=== PATIENT | female | born 1945 ===

== ENCOUNTER 2016-06-26 18:40 | Inpatient (IN) | payer MEDICARE, OTHER ==
[~2016-06-26] VITALS: Ht 152.4 cm; Wt 63.0 kg
[2016-06-26] MEDS ORDERED: VALP250S3 PO (18:47)
[2016-06-26] MEDS ORDERED: RISP3TAB14 PO (18:47)
[2016-06-26] MEDS ORDERED: QUET50TA PO (18:47)
[2016-06-26] MEDS ORDERED: ACET-2154 PO (18:47)
[2016-06-26 19:41] LABS: BASOPHILS # (AUTO) 0.1 K/uL (0.0-0.2); BASOPHILS % (AUTO) 0.7 % (0.0-2.0); EOSINOPHILS # (AUTO) 0.1 K/uL (0.0-0.7); EOSINOPHILS % (AUTO) 1.7 % (0.0-7.0); HEMATOCRIT 35.5 % (37.0-47.0); HEMOGLOBIN 11.8 g/dL (12.0-16.0); LYMPHOCYTES # (AUTO) 1.9 K/uL (0.8-4.8); LYMPHOCYTES % (AUTO) 25.4 % (20.5-51.5); MEAN CORPUSCULAR HEMOGLOBIN 27.3 uug (27.0-31.0); MEAN CORPUSCULAR HGB CONC 33 g/dL (32.0-37.0); MEAN CORPUSCULAR VOLUME 82.3 fL (81.0-99.0); MONOCYTES # (AUTO) 0.6 K/uL (0.1-1.30); MONOCYTES % (AUTO) 7.9 % (0.0-11.0); NEUTROPHILS # (AUTO) 4.8 K/uL (1.8-8.9); NEUTROPHILS % (AUTO) 64.3 % (38.5-71.5); PLATELET COUNT (AUTO) 332 K/uL (150-450); RED BLOOD CELL COUNT(AUTO) 4.32 MIL/uL (4.20-5.40); RED CELL DISTRIBUTION WIDTH 14.4 % (11.5-14.5); WHITE BLOOD COUNT (AUTO) 7.5 K/uL (4.0-11.2)
[2016-06-26 19:48] LABS: CALCIUM 9.6 mg/dL (8.5-10.1); CARBON DIOXIDE 32 mmol/L (21-32); CHLORIDE 105 mmol/L (98-107); CREATININE 0.9 mg/dL (0.6-1.3); GLUCOSE 150 mg/dL (74-106); POTASSIUM 3.7 mmol/L (3.5-5.1); SODIUM SERUM 142 mmol/L (136-145); UREA NITROGEN, BLOOD 19 mg/dL (7-18)
[2016-06-26 19:49] LABS: ETHANOL < 3 MG/DL (0-0)
[2016-06-26 19:55] LABS: ALANINE AMINOTRANSFERASE 32 U/L (14-59); ALBUMIN 3.4 g/dL (3.4-5.0); ALKALINE PHOSPHATASE 99 U/L (50-136); ASPARTATE AMINOTRANSFERASE 23 U/L (15-37); BILIRUBIN,DIRECT 0.2 mg/dL (0.0-0.2); BILIRUBIN,TOTAL 0.6 mg/dL (0.2-1.0); TOTAL PROTEIN, SERUM 8.3 g/dL (6.4-8.2)
[2016-06-26 19:58] LABS: THYROID STIMULATING HORMONE 0.312 mIU/mL (0.358-3.740)
[2016-06-26 19:59] LABS: ACETAMINOPHEN < 2.0 ug/mL (10-30); VALPROIC ACID 17 ug/mL (50-100)
[2016-06-26] MEDS ORDERED: OLANZAPINE 10 MG VIAL IM ONE ×2 (22:00→22:11)
[2016-06-26 22:30] VITALS: BP 137/88
[2016-06-26] MEDS ORDERED: MAG HYDROX/AL HYDROX/SIMETH 30 ML LIQUID UDC PO PRN (23:00)
[2016-06-26] MEDS ORDERED: MAGNESIUM HYDROXIDE 30 ML LIQUID UDC PO PRN (23:00)
[2016-06-26] MEDS ORDERED: ACETAMINOPHEN 325 MG TABLET PO PRN (23:00)
[2016-06-27] MEDS ORDERED: FERR-58 PO (00:40)
[2016-06-27] MEDS ORDERED: GLIP2.5T3 PO (00:40)
[2016-06-27] MEDS ORDERED: ATEN50TA PO (00:41)
[2016-06-27] MEDS ORDERED: ATOR20TA PO (00:42)
[2016-06-27] MEDS ORDERED: OMEP20CA10 PO (00:42)
[2016-06-27] MEDS ORDERED: BUSP5TAB3 PO (00:46)
[2016-06-27] MEDS ORDERED: ASPI81TA44 PO (00:46)
[2016-06-27] MEDS ORDERED: METF10002 PO (00:46)
[2016-06-27] MEDS ORDERED: DIVA500T4 PO (00:46)
[2016-06-27] MEDS ORDERED: AMLO1TAB14 PO (00:46)
[2016-06-27] MEDS ORDERED: RISP2TAB23 PO (00:46)
[2016-06-27] MEDS ORDERED: FLUO20CA36 PO (00:46)
[2016-06-27 07:30] VITALS: BP_SYST 115; BP_SYST 147; BP_DIAS 70; BP_DIAS 75
[2016-06-27] MEDS ORDERED: Medication Not On Formulary EA (Omeprazole 20 MG) PO SCH (09:45)
[2016-06-27] MEDS ORDERED: DEXTROSE 50% 50 ML DISP.SYRIN IV PRN (09:45)
[2016-06-27] MEDS ORDERED: Medication Not On Formulary EA (Metformin Hcl 1,000 MG) PO SCH (09:45)
[2016-06-27] MEDS ORDERED: INSULIN REGULAR, HUMAN 300 UNIT/3 ML VIAL SQ PRN (09:45)
[2016-06-27] MEDS: ASPIRIN EC 81 MG TABLET.DR PO SCH ×2 (09:47→10:25)
[2016-06-27] MEDS: FERROUS SULFATE 325 MG TABEC PO SCH ×2 (10:25→16:58)
[2016-06-27] MEDS: ATORVASTATIN 20 MG TABLET PO SCH (10:25)
[2016-06-27] MEDS: ATENOLOL 50 MG TABLET PO SCH (10:26)
[2016-06-27] MEDS: QUETIAPINE FUMARATE 100 MG TABLET PO SCH ×2 (11:37→21:05)
[2016-06-27] MEDS: DIVALPROEX 250 MG TABLET.DR PO SCH ×3 (11:37→16:57)
[2016-06-27] MEDS: glipiZIDE XL 2.5 MG TABCR PO SCH (11:38)
[2016-06-27] MEDS: BLOOD SUGAR DIAGNOSTIC 1 EACH STRIP VI SCH ×3 (11:48→21:18)
[2016-06-27] MEDS: METFORMIN HCL 500 MG TABLET PO SCH (17:04)
[2016-06-27 20:01] VITALS: BP 109/68
[2016-06-28] MEDS: PANTOPRAZOLE SODIUM 40 MG TABLET.DR PO SCH (06:22)
[2016-06-28] MEDS: BLOOD SUGAR DIAGNOSTIC 1 EACH STRIP VI SCH ×3 (06:32→16:30)
[2016-06-28 07:30] VITALS: BP 107/66
[2016-06-28] MEDS: METFORMIN HCL 500 MG TABLET PO SCH ×2 (08:00→17:34)
[2016-06-28] MEDS: VALSARTAN 160 MG TABLET PO SCH (09:00)
[2016-06-28] MEDS: AMLODIPINE 5 MG TABLET PO SCH (09:00)
[2016-06-28] MEDS ORDERED: AMLODIPINE PO SCH (09:00)
[2016-06-28] MEDS: ATENOLOL 50 MG TABLET PO SCH (09:00)
[2016-06-28] MEDS ORDERED: VALSARTAN PO SCH (09:00)
[2016-06-28] MEDS: ATORVASTATIN 20 MG TABLET PO SCH (09:57)
[2016-06-28] MEDS: DIVALPROEX 250 MG TABLET.DR PO SCH ×3 (09:57→17:00)
[2016-06-28] MEDS: FERROUS SULFATE 325 MG TABEC PO SCH ×2 (09:57→17:00)
[2016-06-28] MEDS: QUETIAPINE FUMARATE 100 MG TABLET PO SCH ×2 (09:57→20:09)
[2016-06-28] MEDS: ASPIRIN EC 81 MG TABLET.DR PO SCH (09:57)
[2016-06-28] MEDS: glipiZIDE XL 2.5 MG TABCR PO SCH (09:58)
[2016-06-28] MEDS ORDERED: HALOPERIDOL LACTATE 5 MG/1 ML VIAL IM PRN (10:15)
[2016-06-28 16:00] VITALS: BP 109/65
[2016-06-28] MEDS ORDERED: DEXTROSE 50% 50 ML DISP.SYRIN IV PRN (16:30)
[2016-06-28 19:59] VITALS: BP 121/58
[2016-06-28] MEDS ORDERED: MUPIROCIN 2% OINT 22 GM TUBE ONE (21:14)
[2016-06-28] MEDS: MUPIROCIN 2% OINT 22 GM TUBE NS SCH (21:25)
[2016-06-29] MEDS: CLONAZEPAM 0.5 MG TABLET PO PRN ×2 (02:12→07:55)
[2016-06-29] MEDS: BLOOD SUGAR DIAGNOSTIC 1 EACH STRIP VI SCH ×4 (06:43→21:30)
[2016-06-29] MEDS: PANTOPRAZOLE SODIUM 40 MG TABLET.DR PO SCH (06:51)
[2016-06-29 07:41] VITALS: BP 125/69
[2016-06-29] MEDS: METFORMIN HCL 500 MG TABLET PO SCH ×2 (08:00→17:18)
[2016-06-29] MEDS: QUETIAPINE FUMARATE 100 MG TABLET PO SCH ×2 (09:00→21:23)
[2016-06-29] MEDS: ATORVASTATIN 20 MG TABLET PO SCH ×2 (09:00→17:21)
[2016-06-29] MEDS: glipiZIDE XL 2.5 MG TABCR PO SCH (09:00)
[2016-06-29] MEDS: ATENOLOL 50 MG TABLET PO SCH ×2 (09:00→17:22)
[2016-06-29] MEDS: FERROUS SULFATE 325 MG TABEC PO SCH ×2 (09:00→17:18)
[2016-06-29] MEDS: MUPIROCIN 2% OINT 22 GM TUBE NS SCH ×2 (09:00→21:30)
[2016-06-29] MEDS: AMLODIPINE 5 MG TABLET PO SCH ×2 (09:00→17:21)
[2016-06-29] MEDS: DIVALPROEX 250 MG TABLET.DR PO SCH ×3 (09:00→17:18)
[2016-06-29] MEDS: ASPIRIN EC 81 MG TABLET.DR PO SCH ×2 (09:00→17:20)
[2016-06-29] MEDS: VALSARTAN 160 MG TABLET PO SCH ×2 (09:00→17:20)
[2016-06-29 16:45] VITALS: BP 125/60
[2016-06-29] MEDS ORDERED: LORAZEPAM 2 MG/1 ML VIAL IM ONE (18:00)
[2016-06-29] MEDS ORDERED: HALOPERIDOL LACTATE 5 MG/1 ML VIAL IM ONE (18:00)
[2016-06-29] MEDS ORDERED: diphenhydrAMINE 50 MG/1 ML VIAL IM ONE (18:00)
[2016-06-29 21:27] VITALS: BP 105/58
[2016-06-30] MEDS: PANTOPRAZOLE SODIUM 40 MG TABLET.DR PO SCH (06:21)
[2016-06-30] MEDS: BLOOD SUGAR DIAGNOSTIC 1 EACH STRIP VI SCH ×2 (06:32→16:30)
[2016-06-30 07:30] VITALS: BP 131/73
[2016-06-30] MEDS: MUPIROCIN 2% OINT 22 GM TUBE NS SCH ×2 (09:21→20:15)
[2016-06-30] MEDS: VALSARTAN 160 MG TABLET PO SCH (09:21)
[2016-06-30] MEDS: FERROUS SULFATE 325 MG TABEC PO SCH ×3 (09:22→17:21)
[2016-06-30] MEDS: QUETIAPINE FUMARATE 100 MG TABLET PO SCH ×2 (09:22→20:15)
[2016-06-30] MEDS: METFORMIN HCL 500 MG TABLET PO SCH ×3 (09:22→18:00)
[2016-06-30] MEDS: ASPIRIN EC 81 MG TABLET.DR PO SCH (09:22)
[2016-06-30] MEDS: ATORVASTATIN 20 MG TABLET PO SCH (09:22)
[2016-06-30] MEDS: DIVALPROEX 250 MG TABLET.DR PO SCH ×4 (09:22→17:21)
[2016-06-30] MEDS: ATENOLOL 50 MG TABLET PO SCH (09:23)
[2016-06-30] MEDS: AMLODIPINE 5 MG TABLET PO SCH (09:23)
[2016-06-30] MEDS ORDERED: HALOPERIDOL LACTATE 5 MG/1 ML VIAL IM PRN (11:15)
[2016-06-30] MEDS: CLONAZEPAM 0.5 MG TABLET PO PRN (13:23)
[2016-06-30 16:37] VITALS: BP 112/54
[2016-06-30 20:00] VITALS: BP 110/63
[2016-07-01] MEDS: CLONAZEPAM 0.5 MG TABLET PO PRN (05:31)
[2016-07-01] MEDS: PANTOPRAZOLE SODIUM 40 MG TABLET.DR PO SCH (06:07)
[2016-07-01] MEDS: BLOOD SUGAR DIAGNOSTIC 1 EACH STRIP VI SCH ×2 (06:40→17:00)
[2016-07-01 07:30] VITALS: BP 111/62
[2016-07-01] MEDS: METFORMIN HCL 500 MG TABLET PO SCH ×2 (08:00→18:27)
[2016-07-01] MEDS: FERROUS SULFATE 325 MG TABEC PO SCH ×2 (09:00→18:27)
[2016-07-01] MEDS: ASPIRIN EC 81 MG TABLET.DR PO SCH (09:00)
[2016-07-01] MEDS: VALSARTAN 160 MG TABLET PO SCH (09:00)
[2016-07-01] MEDS: ATENOLOL 50 MG TABLET PO SCH (09:00)
[2016-07-01] MEDS: QUETIAPINE FUMARATE 100 MG TABLET PO SCH ×2 (09:00→20:08)
[2016-07-01] MEDS: DIVALPROEX 250 MG TABLET.DR PO SCH ×4 (09:00→18:27)
[2016-07-01] MEDS: AMLODIPINE 5 MG TABLET PO SCH (09:00)
[2016-07-01] MEDS: MUPIROCIN 2% OINT 22 GM TUBE NS SCH ×2 (09:02→20:08)
[2016-07-01 13:30] LABS: *BILIRUBIN,URIN NEGATIVE (NEGATIVE); *BLOOD, URINE 1+ (NEGATIVE); *CLARITY,URINE CLOUDY (CLEAR); *COLOR,URINE YELLOW (YELLOW); *KETONES,URINE NEGATIVE (NEGATIVE); *PROTEIN,URINE TRACE (NEGATIVE); LEUKOCYTE ESTERASE ,URINE 3+ (NEGATIVE); PH,URINE 6.5 (5.0-8.0); UGLUCOSE NEGATIVE (NEGATIVE)
[2016-07-01 13:38] LABS: NITRITE, URINE POSITIVE (NEGATIVE)
[2016-07-01 13:39] LABS: BACTERIA,URINE MANY /HPF (NONE SEEN); SQUAMOUS EPITHELIAL CELL,UR MANY /HPF (NONE SEEN); WBC,URINE TNTC /HPF (0-3)
[2016-07-01] MEDS: SULFAMETH/TRIMETH 800/160 MG TABLET PO SCH ×2 (14:45→20:07)
[2016-07-01 16:04] VITALS: BP 110/63
[2016-07-01] MEDS: ATORVASTATIN 20 MG TABLET PO SCH (20:07)
[2016-07-01 20:08] VITALS: BP 117/69
[2016-07-02] MEDS: PANTOPRAZOLE SODIUM 40 MG TABLET.DR PO SCH (06:32)
[2016-07-02] MEDS: BLOOD SUGAR DIAGNOSTIC 1 EACH STRIP VI SCH ×2 (06:33→16:55)
[2016-07-02 07:30] VITALS: BP 124/70
[2016-07-02] MEDS: METFORMIN HCL 500 MG TABLET PO SCH ×2 (08:00→17:21)
[2016-07-02] MEDS: ASPIRIN EC 81 MG TABLET.DR PO SCH (09:00)
[2016-07-02] MEDS: QUETIAPINE FUMARATE 100 MG TABLET PO SCH ×2 (09:00→20:00)
[2016-07-02] MEDS: DIVALPROEX 250 MG TABLET.DR PO SCH ×3 (09:00→16:46)
[2016-07-02] MEDS: ATENOLOL 50 MG TABLET PO SCH (09:00)
[2016-07-02] MEDS: VALSARTAN 160 MG TABLET PO SCH (09:00)
[2016-07-02] MEDS: SULFAMETH/TRIMETH 800/160 MG TABLET PO SCH ×2 (09:00→20:00)
[2016-07-02] MEDS: FERROUS SULFATE 325 MG TABEC PO SCH ×2 (09:00→16:46)
[2016-07-02] MEDS: AMLODIPINE 5 MG TABLET PO SCH (09:00)
[2016-07-02] MEDS: MUPIROCIN 2% OINT 22 GM TUBE NS SCH ×2 (09:00→20:00)
[2016-07-02] MEDS: HALOPERIDOL LACTATE 5 MG/1 ML VIAL IM PRN (09:15)
[2016-07-02] MEDS: CLONAZEPAM 0.5 MG TABLET PO PRN (14:19)
[2016-07-02 16:00] VITALS: BP 108/67
[2016-07-02 19:53] VITALS: BP 136/75
[2016-07-02] MEDS: ATORVASTATIN 20 MG TABLET PO SCH (20:00)
[2016-07-03] MEDS: PANTOPRAZOLE SODIUM 40 MG TABLET.DR PO SCH (06:55)
[2016-07-03] MEDS: BLOOD SUGAR DIAGNOSTIC 1 EACH STRIP VI SCH ×2 (06:58→16:59)
[2016-07-03 07:30] VITALS: BP 114/62
[2016-07-03] MEDS: METFORMIN HCL 500 MG TABLET PO SCH ×2 (08:00→17:58)
[2016-07-03] MEDS: AMLODIPINE 5 MG TABLET PO SCH ×2 (08:59→09:00)
[2016-07-03] MEDS: FERROUS SULFATE 325 MG TABEC PO SCH ×3 (08:59→17:00)
[2016-07-03] MEDS: SULFAMETH/TRIMETH 800/160 MG TABLET PO SCH (08:59)
[2016-07-03] MEDS: QUETIAPINE FUMARATE 100 MG TABLET PO SCH ×2 (09:00→09:01)
[2016-07-03] MEDS: ASPIRIN EC 81 MG TABLET.DR PO SCH ×2 (09:00→09:45)
[2016-07-03] MEDS: ATENOLOL 50 MG TABLET PO SCH ×2 (09:00→09:23)
[2016-07-03] MEDS: DIVALPROEX 250 MG TABLET.DR PO SCH ×3 (09:01→17:00)
[2016-07-03] MEDS: VALSARTAN 160 MG TABLET PO SCH (09:02)
[2016-07-03] MEDS: MUPIROCIN 2% OINT 22 GM TUBE NS SCH ×2 (09:14→21:00)
[2016-07-03] MEDS: HALOPERIDOL LACTATE 5 MG/1 ML VIAL IM PRN (09:33)
[2016-07-03] MEDS ORDERED: HALOPERIDOL DECANOATE 50 MG/1 ML AMPUL IM ONE (10:15)
[2016-07-03] MEDS: CEFTRIAXONE 1 G VIAL IM SCH (13:22)
[2016-07-03 14:59] VITALS: BP 119/68
[2016-07-03] MEDS: BENZTROPINE MESYLATE 0.5 MG TABLET PO SCH (17:00)
[2016-07-03] MEDS: HALOPERIDOL 5 MG TABLET PO SCH (17:00)
[2016-07-03] MEDS: ATORVASTATIN 20 MG TABLET PO SCH (22:03)
[2016-07-04] MEDS: CLONAZEPAM 0.5 MG TABLET PO PRN (03:32)
[2016-07-04] MEDS: PANTOPRAZOLE SODIUM 40 MG TABLET.DR PO SCH (06:41)
[2016-07-04] MEDS: BLOOD SUGAR DIAGNOSTIC 1 EACH STRIP VI SCH ×2 (06:41→16:34)
[2016-07-04] MEDS: METFORMIN HCL 500 MG TABLET PO SCH ×2 (08:00→17:15)
[2016-07-04] MEDS: MUPIROCIN 2% OINT 22 GM TUBE NS SCH ×2 (09:00→21:08)
[2016-07-04] MEDS: BENZTROPINE MESYLATE 0.5 MG TABLET PO SCH ×2 (09:00→16:30)
[2016-07-04] MEDS: DIVALPROEX 250 MG TABLET.DR PO SCH ×3 (09:00→16:30)
[2016-07-04] MEDS: ASPIRIN EC 81 MG TABLET.DR PO SCH (09:00)
[2016-07-04] MEDS: HALOPERIDOL 5 MG TABLET PO SCH ×2 (09:00→16:30)
[2016-07-04] MEDS: ATENOLOL 50 MG TABLET PO SCH (09:00)
[2016-07-04] MEDS: AMLODIPINE 5 MG TABLET PO SCH (09:00)
[2016-07-04] MEDS: VALSARTAN 160 MG TABLET PO SCH (09:00)
[2016-07-04] MEDS: FERROUS SULFATE 325 MG TABEC PO SCH ×2 (09:00→16:30)
[2016-07-04] MEDS: HALOPERIDOL LACTATE 5 MG/1 ML VIAL IM PRN (09:01)
[2016-07-04] MEDS: CEFTRIAXONE 1 G VIAL IM SCH (13:13)
[2016-07-04 15:51] VITALS: BP 137/72
[2016-07-04 20:00] VITALS: BP 130/76
[2016-07-04] MEDS: TEMAZEPAM 7.5 MG CAPSULE PO PRN (21:08)
[2016-07-04] MEDS: ATORVASTATIN 20 MG TABLET PO SCH (21:08)
[2016-07-05] MEDS: PANTOPRAZOLE SODIUM 40 MG TABLET.DR PO SCH (07:13)
[2016-07-05] MEDS: BLOOD SUGAR DIAGNOSTIC 1 EACH STRIP VI SCH ×2 (07:14→17:16)
[2016-07-05] MEDS: METFORMIN HCL 500 MG TABLET PO SCH ×2 (08:24→17:37)
[2016-07-05] MEDS: AMLODIPINE 5 MG TABLET PO SCH (09:00)
[2016-07-05] MEDS: DIVALPROEX 250 MG TABLET.DR PO SCH ×3 (09:00→17:37)
[2016-07-05] MEDS: ATENOLOL 50 MG TABLET PO SCH (09:00)
[2016-07-05] MEDS: MUPIROCIN 2% OINT 22 GM TUBE NS SCH (09:00)
[2016-07-05] MEDS: HALOPERIDOL 5 MG TABLET PO SCH ×2 (09:00→17:37)
[2016-07-05] MEDS: BENZTROPINE MESYLATE 0.5 MG TABLET PO SCH ×2 (09:00→17:37)
[2016-07-05] MEDS: VALSARTAN 160 MG TABLET PO SCH (09:00)
[2016-07-05] MEDS: ASPIRIN EC 81 MG TABLET.DR PO SCH (09:00)
[2016-07-05] MEDS: FERROUS SULFATE 325 MG TABEC PO SCH ×2 (09:00→17:37)
[2016-07-05] MEDS: HALOPERIDOL LACTATE 5 MG/1 ML VIAL IM PRN (09:49)
[2016-07-05] MEDS: CEFTRIAXONE 1 G VIAL IM SCH (13:44)
[2016-07-05 15:36] VITALS: BP 124/79
[2016-07-05 20:00] VITALS: BP 118/70
[2016-07-05] MEDS: ATORVASTATIN 20 MG TABLET PO SCH (20:18)
[2016-07-05] MEDS: TEMAZEPAM 7.5 MG CAPSULE PO PRN (22:05)
[2016-07-06] MEDS: BLOOD SUGAR DIAGNOSTIC 1 EACH STRIP VI SCH ×2 (06:35→16:52)
[2016-07-06] MEDS: PANTOPRAZOLE SODIUM 40 MG TABLET.DR PO SCH (06:42)
[2016-07-06 07:30] VITALS: BP 148/79
[2016-07-06] MEDS: CLONAZEPAM 0.5 MG TABLET PO PRN (08:59)
[2016-07-06] MEDS: AMLODIPINE 5 MG TABLET PO SCH (08:59)
[2016-07-06] MEDS: BENZTROPINE MESYLATE 0.5 MG TABLET PO SCH ×2 (08:59→17:00)
[2016-07-06] MEDS: HALOPERIDOL 5 MG TABLET PO SCH ×2 (09:00→17:00)
[2016-07-06] MEDS: DIVALPROEX 250 MG TABLET.DR PO SCH ×3 (09:00→17:00)
[2016-07-06] MEDS: ASPIRIN EC 81 MG TABLET.DR PO SCH (09:00)
[2016-07-06] MEDS: ATENOLOL 50 MG TABLET PO SCH (09:00)
[2016-07-06] MEDS: VALSARTAN 160 MG TABLET PO SCH (09:01)
[2016-07-06] MEDS: METFORMIN HCL 500 MG TABLET PO SCH ×2 (09:01→17:38)
[2016-07-06] MEDS: FERROUS SULFATE 325 MG TABEC PO SCH ×2 (09:01→17:00)
[2016-07-06] MEDS: CEFTRIAXONE 1 G VIAL IM SCH (14:17)
[2016-07-06] MEDS: HALOPERIDOL LACTATE 5 MG/1 ML VIAL IM PRN (17:32)
[2016-07-06 20:11] VITALS: BP 119/70
== END 2016-07-06 20:45 | disposition home health service (06) | DRG 885 ==
LOC: ER 18:47 → GPS 21:57
PROVIDERS: ADMIT Psychiatry & Neurology Psychiatry; ATTEND Internal Medicine
DX: F25.9 Schizoaffective disorder, unspecified (principal); E11.65 Type 2 diabetes mellitus with hyperglycemia; N39.0 Urinary tract infection, site not specified; F29 Unspecified psychosis not due to a substance or known physiological condition; D64.9 Anemia, unspecified; F25.0 Schizoaffective disorder, bipolar type; I10 Essential (primary) hypertension; Z91.14 Patient's other noncompliance with medication regimen; E78.00 Pure hypercholesterolemia, unspecified; Z22.322 Carrier or suspected carrier of Methicillin resistant Staphylococcus aureus; E04.1 Nontoxic single thyroid nodule; B96.20 Unspecified Escherichia coli [E. coli] as the cause of diseases classified elsewhere
CPT/HCPCS: 36415; 80164; 84443; 84481; 85025; 87077; 87086; 93005; 97001; 97110; 97116; 97530; A4663; G0480-TC; G6040-TC; J0696; J1200; J1630; J1631; J1815; J2060; J2358; J3490